=== PATIENT | male | born 1970 ===

== ENCOUNTER 2021-08-16 15:21 | Emergency (ER) | payer SELFPAY ==
[2021-08-16 15:34] VITALS: BP 129/77; PULSE 75; RESP 20; TEMP 36.8; O2SAT 95
--- NOTE | 2021-08-16 18:09 | PC.NURSE ---
190- no answer when called.
== END 2021-08-17 03:57 | disposition left against medical advice (07) ==
LOC: ANHED 18:15
DX: R11.10 Vomiting, unspecified (principal)
CPT/HCPCS: 99199